=== PATIENT | male | born 1980 | race Caucasian/White ===

== ENCOUNTER 2023-12-07 19:48 | Emergency (ER) | payer MEDICAID, SELFPAY ==
[2023-12-07 19:50] VITALS: BP 167/94; PULSE 74; RESP 18; TEMP 36.9; O2SAT 100
--- NOTE | 2023-12-07 20:26 | RAD_ITS ---
EXAM: XR LEFT FOOT COMPLETE, 3 OR MORE VIEWS CLINICAL INDICATION: Injury/Pain TECHNIQUE: Frontal, lateral and oblique views of the left foot. COMPARISON: No relevant prior studies available. FINDINGS: BONES/JOINTS: There is an orthopedic screws seen within the tibia from previous fracture repair. Preservation of the joint space. No sclerotic or destructive changes observed. SOFT TISSUES: Unremarkable. No soft tissue swelling or gas. No radiopaque foreign body. RAD/Foot min 3 Views IMPRESSION: No acute findings in the left foot. Electronically Signed: Rao Pineda MD at 21:20 EDT ,
--- NOTE | 2023-12-07 20:32 | RAD_ITS ---
EXAM: XR LEFT ANKLE COMPLETE, 3 OR MORE VIEWS CLINICAL INDICATION: Injury/Pain TECHNIQUE: Frontal, lateral and oblique views of the left ankle. COMPARISON: No relevant prior studies available. FINDINGS: BONES/JOINTS: There is the distal aspect of orthopedic screws seen within the distal tibia. There are lucencies seen through the tibia and fibula from previous screw placement. There is minimal irregularity seen in the lateral aspect of the distal tibia likely trauma. No acute fracture. No subluxation. Normal alignment. Preservation of the joint space. SOFT TISSUES: Unremarkable. No soft tissue swelling or gas. No radiopaque foreign body. RAD/Ankle min 3 Views IMPRESSION: Evidence of prior fracture repair hardware placement. There is a screw still present with tibia. There are no acute osseous abnormalities. Electronically Signed: Rao Pineda MD at 21:19 EDT ,
--- NOTE | 2023-12-07 20:33 | EDS_ITS ---
HPI History of Present Illness HPI Narrative: Patient presents with left ankle injury that occurred today. Patient states he was up on a ladder approximately 2 steps and the ladder fell when his dog ran into it. Patient states he fell and inverted his left ankle. Patient states he felt and heard a pop. Patient describes the pain as sharp and stabbing. Patient states his pain is worse with weightbearing. Patient states nothing seems to help with the pain. Patient denies any paresthesias or weakness. P atient denies any other injuries. Chief Complaint: Lower Extremity Injury Onset/Context/Timing Onset: Today Context: Sudden Onset Timing: Continuous Quality of Pain: Sharp and Stabbing Location: Left ankle Worsened by: Weightbearing Relieved by: Nothing Associated Symptoms Associated Symptoms: Negative for Parasthesia, Weakness or Loss of Funtion PFSH PFSH Medical History no medical history no medical history Home Medications ?Medication ?Instructions ?Recorded ?Last Taken ?Type etodolac 300 mg capsule 300 mg PO TIDCM ##20 11/30/16 Unknown Rx Allergy/AdvReac Type Severity Reaction Status Date / Time No Known Allergies Allergy Verified 12/07/23 19:52 Surgical History (Updated 12/07/23 @ 21:[address] Deondre Caban DO) Status post ORIF of fracture of ankle Social History Smoking Status: Current some day smoker ROS ROS ED Constitutional Constitutional ED: Denies chills or fever(s) Eyes Eyes: Denies blurry vision or change in vision ENT ENT ED: Denies rhinorrhea or sore throat Cardiovascular Cardiovascular: Denies chest pain or palpitations Respiratory/Chest Respiratory/Chest: Denies cough or dyspnea Gastrointestinal Gastrointestinal: Reports nausea and vomiting Genitourinary Genitourinary ED: Denies dysuria or hematuria Musculoskeletal Musculoskeletal: Denies back pain or neck pain Integumentary Denies abscess or rash Neurologic Neurologic: Denies headache(s) or weakness Allergic/Immunologic Allergic/Immunologic ED: Denies mouth swelling or urticaria EXAM Physical Exam Const Vital Signs: 12/07/23 19:50 Temperature 98.4 F Temperature Source Temporal Pulse Rate 74 Respiratory Rate 18 Blood Pressure 167/94 H Blood Pressure Mean 118 Pulse Ox 100 Oxygen Delivery Method Room Air Positive well nourished and well developed General Appearance ED: well developed and NAD HEENT Reports moist mucous membranes normocephalic and atraumatic Extremity Extremity Narrative: There is tenderness, edema, and ecchymosis over the medial and lateral malleoli. There is also mild tenderness over the fifth metatarsal. There is no bony crepitance or step-off noted. There is no tenderness over the proximal fibula. Range of motion was limited in all motions of the left ankle secondary to pain. Strength is 5/5 bilaterally in the lower extremities. There are no sensory deficits noted. Pedal pulses are equal bilaterally. Neuro oriented x3, CN's II-XII intact bilaterally, moves all extremities and no sensory deficits noted Sensorium / Orientation: alert Motor Exam: strength 5/5 throughout MDM MDM MDM Narrative Medical decision making narrative: Differential diagnosis includes fracture, sprain, and contusion. X-rays of the left ankle will be obtained to assess for fracture and dislocation. X-rays of the left foot will be obtained to assess for fifth metatarsal fracture. Radiography Diagnostic Testing: X-rays of the left foot were obtained. There are 3 views. On my independent interpretation, there is no acute fracture. There is no soft tissue swelling noted. X-rays of the left ankle were obtained. There are 3 views. On my independent interpretation, there is no acute fracture noted. There is a screw noted in the distal tibia. There is mild soft tissue swelling. Radiologist also interpreted the x-rays and agrees. Treatment and Re-Evaluation Narrative: Smoking cessation was discussed. Patient was advised of his findings. Patient was instructed to ice and elevate the left ankle. Patient was given an Aircast. Patient was instructed to take Tylenol or ibuprofen as needed for pain. Maria D ent was instructed to follow-up with his primary care physician in 5 to 7 days. Patient understood and was agreeable with the plan. All questions were answered. Discharge Plan Triage Chief Complaint: Lower Extremity Injury ED Provider: Deondre Caban Dx/Rx/DC Orders Clinical Impression: Left ankle sprain, Fall Instructions: ED Ankle Sprain (Adult) Prescriptions: No Action etodolac 300 MG capsule 300 mg PO TIDCM Qty: 20 0RF Rx Instructions: with food Primary Care Provider: Annie Denton Referrals: Annie Denton, [employer]-C [Primary Care Provider] - 5-7 Days Print Language: Comoran Disposition Disposition: Home, Self Care
[2023-12-07 22:21] VITALS: BP 140/85; PULSE 82; RESP 16; TEMP 35.7; O2SAT 96
== END 2023-12-07 22:23 | disposition home or self-care (01) ==
PROVIDERS: Emergency Provider Emergency Medicine; PCP Nurse Practitioner Family; Visit Provider Emergency Medicine
DX: S93.402A Sprain of unspecified ligament of left ankle, initial encounter (principal); F17.200 Nicotine dependence, unspecified, uncomplicated; W11.XXXA Fall on and from ladder, initial encounter
CPT/HCPCS: 73610; 73630; 99283

== ENCOUNTER 2024-01-14 11:34 | Emergency (ER) | payer MEDICAID, SELFPAY ==
[2024-01-14 11:34] VITALS: BP 158/107; PULSE 93; RESP 16; TEMP 36.6; O2SAT 98; BMI 32.2
--- NOTE | 2024-01-14 12:19 | EDS_ITS ---
HPI History of Present Illness HPI Narrative: 43-year-old male no seen past medical history. Was working on a soap [employer] car at his home. He was fixing something on a spring let loose and lacerated the distal palmar aspect of his left ring finger. Unsure of his last tetanus shot. He is right-hand dominant. He has never had surgery on his left hand or any significant injury. This occurred about an hour ago. Chief Complaint: Laceration Informant: patient Occured/Mechanism Mechanism/Context: Yes injury Onset/Context/Timing Onset: Today and Hours Context: Sudden Onset Timing: Continuous Quality of Pain: Sharp Current Severity: Mild Maximum Severity: Mild Associated Symptoms Associated Symptoms: Negative for Parasthesia or Weakness Narrative Narrative: 43-year-old [id number] male with a laceration of his left ring finger at the distal end. Tetanus will need updated. This occurred within the last hour or so. Tetanus Immunization: Unknown Prior similar symptoms: No Recent Illness/Hospitalization: No PFSH PFSH Medical History no medical history no medical history Home Medications ?Medication ?Instructions ?Recorded ?Last Taken ?Type etodolac 300 mg capsule 300 mg PO TIDCM ##20 11/30/16 Unknown Rx Allergy/AdvReac Type Severity Reaction Status Date / Time No Known Allergies Allergy Verified 01/14/24 11:37 Surgical History Status post ORIF of fracture of ankle Social History Smoking Status: Current some day smoker tobacco type: cigarettes ROS ROS ED ROS Narrative Denies recent illness. Review of Systems ROS Unobtainable: Denies due to encephalopathy Constitutional Constitutional ED: Denies chills or fever(s) Eyes Eyes: Denies blurry vision ENT ENT ED: Denies ear pain Respiratory/Chest Respiratory/Chest: Denies cough Gastrointestinal Gastrointestinal: Denies abdominal pain Genitourinary Genitourinary ED: Denies dysuria Musculoskeletal Musculoskeletal: Denies back pain Integumentary Denies abscess Neurologic Neurologic: Denies headache(s) Psychiatric Psychiatric: Denies anxiety Endocrine Endocrinology: Denies cold intolerance Hematologic/Lymphatic Hematologic/Lymphatic: Denies easy bleeding, easy bruising or lymphadenopathy Allergic/Immunologic Allergic/Immunologic ED: Denies mouth swelling, tongue swelling or urticaria EXAM Physical Exam Narrative Exam Narrative: Well-appearing 42-year-old male. Vital signs stable afebrile. H EENT exam unremarkable. Neck nontender. No JVD. Lungs clear to auscultation bilaterally. Heart regular rhythm no murmur. Chest wall nontender. Abdomen soft nontender. Moving all 4 extremities. Neurovascular intact. The left hand, ring finger distal and palmar aspect he has about a 2 cm laceration that is actively bleeding that will need repaired. Otherwise the hand is neurovascularly intact. His hands are extremely dirty with grease and other things on them. Const Vital Signs: 01/14/24 11:34 Temperature 97.8 F Temperature Source Temporal Pulse Rate 93 Respiratory Rate 16 Blood Pressure 158/107 H Blood Pressure Mean 124 Pulse Ox 98 Oxygen Delivery Method Room Air Positive well nourished and well developed; Negative for cachectic, contractures or unkempt General Appearance ED: well developed and NAD; Negative for unkempt, cachectic, contractures, cyanotic or diaphoretic Nutritional Appearance: Negative for cachectic HEENT Reports moist mucous membranes normocephalic and atraumatic; Negative for trauma or tenderness Eyes PERRL and EOMs intact bilaterally General Eye ED: Negative for other Neck full ROM and supple General: Negative for tenderness Lymph Lymphatic: Negative for other Chest Wall inspection of chest normal and palpation of chest normal Chest: Negative for other Resp normal respiratory effort and clear to auscultation bilaterally Effort and Inspection: Negative for pain with movement Auscultation: Negative for rales, rhonchi, wheezes or diminished lung sounds Cardio regular rate, regular rhythm, S1 normal heart sound, S2 normal heart sound and no murmurs Rate: Negative for bradycardia or tachycardic Rhythm: Negative for abnormal rhythm GI non-tender, non-distended and no masses Inspection: Negative for abdominal distention Auscultation: normoactive bowel sounds Palpation: soft; Negative for tender, guarding or rebound tenderness present Back/Spine no CVA tenderness General Back: Negative for CVA tenderness Cervical Spine: Negative for cervical spine tenderness Thoracic Spine / Upper Back: Negative for thoracic spinal tenderness Extremity full ROM; Negative for normal to inspection Extremity Narrative: Laceration, distal left ring finger palmar aspect about 2 cm. General Extremety ED: Negative for edema General Extremity: Negative for edema Neuro oriented x3, CN's II-XII intact bilaterally and moves all extremities Sensorium / Orientation: alert, oriented to person, oriented to place and oriented to time; Negative for orientation impaired, lethargic, stuporous or other Motor Exam: strength 5/5 throughout Psych mental status grossly normal Appearance: Negative for unkempt Attitude: No agitated Mood & Affect: Negative for depressed, anxious or tearful Skin General Skin Exam: Negative for petechiae Lesions: no lesions Trauma: laceration; Negative for no lacerations or abrasions MDM MDM MDM Narrative Medical decision making narrative: 43-year-old male [id number] with laceration of the left distal ring finger palmar aspect. Tetanus will be updated. Digital block. Irrigated, explored and repaired. Procedures Lacerations Left ring finger laceration repair:: Length: 1 in Depth: Sub Q Shape: Linear Prep: Shure-Clens Laceration repair: Digital block, Lidocaine, Skin sutures and Wound explored Number of Sutures/Clementine: 4 Suture Information: Ethilon, Simple and 4-0 Comment: Left ring finger laceration distal end. Patient washed his hand thoroughly with soap and water. Digital block was performed. Once proper an esthetic was obtained. Area was cleaned thoroughly with Shur-Clens washed and irrigated with saline and explored. Closed using 4 simple did 4-0 Ethilon sutures. Proper hemostasis wound closure obtained. Patient tolerated procedure well. He was instructed on wound care and suture removal. Discharge Plan Triage Chief Complaint: Laceration ED Provider: Jimy Quiles Dx/Rx/DC Orders Clinical Impression: Finger laceration Instructions: ED Laceration, Hand: All Closures Prescriptions: No Action etodolac 300 MG capsule 300 mg PO TIDCM Qty: 20 0RF Rx Instructions: with food Primary Care Provider: Annie Denton Referrals: Annie Denton, HSE COORDINATOR-C [Primary Care Provider] - 10 Day for suture removal Activity Restrictions/Additional Instructions: Clean daily with soap and water or peroxide and water. Apply antibiotic ointment daily. Watch for any signs of infection such as pus, fever, red streaks, swelling. He is seen return. Ice and elevate. Motrin and Tylenol for pain and swelling. Stitches out in 10 days. Print Language: Cameroonian Disposition Disposition: Home, Self Care
[2024-01-14] MEDS: Diphth,Pertuss(Acell),Tet Vac 0.5 ML Vial IM (12:24)
[2024-01-14] MEDS: Lidocaine 1% (20 ml mdv) 20 ML Vial 10 ML INFILT (12:25)
[2024-01-14 14:14] VITALS: BP 145/62; PULSE 85; RESP 16; O2SAT 99
== END 2024-01-14 14:54 | disposition home or self-care (01) ==
PROVIDERS: Emergency Provider Emergency Medicine; PCP Nurse Practitioner Family; Visit Provider Emergency Medicine
DX: S61.215A Laceration without foreign body of left ring finger without damage to nail, initial encounter (principal); F17.210 Nicotine dependence, cigarettes, uncomplicated; W26.8XXA Contact with other sharp object(s), not elsewhere classified, initial encounter; Y93.89 Activity, other specified; Y92.009 Unspecified place in unspecified non-institutional (private) residence as the place of occurrence of the external cause; Z23 Encounter for immunization
CPT/HCPCS: 12001; 90471; 99284

== ENCOUNTER 2024-03-10 14:23 | Emergency (ER) | payer MEDICAID, SELFPAY ==
[2024-03-10 14:25] VITALS: BP 160/129; PULSE 75; RESP 18; TEMP 36.5; O2SAT 97; BMI 31.6
--- NOTE | 2024-03-10 14:30 | RAD_ITS ---
STUDY: X-RAY - RIGHT ANKLE REASON FOR EXAM: Male, 43 years old. Possible foreign body. TECHNIQUE: 3 view(s) of the ankle. COMPARISON: None. FINDINGS: Normal visualized distal tibia and fibula. Normal medial and lateral malleoli. Normal tibiotalar articulation and ankle mortise. Calcaneal spurs. The visualized subtalar, talonavicular, calcaneocuboid and tarsal articulations are normal. Talar neck beak. This is a normal variant. Soft tissue swelling overlying the lateral malleolus. No radiopaque foreign body is seen. RAD/Ankle min 3 Views IMPRESSION: Soft tissue swelling overlying the lateral malleolus. No radiopaque foreign body is seen. Calcaneal spurs. Electronically Signed: Johnathan Chandler MD at 14:52 EDT ,
--- NOTE | 2024-03-10 14:30 | RAD_ITS ---
STUDY: X-RAY - RIGHT FOOT CLINICAL: Male, 43 years old. Pain TECHNIQUE: 3 view(s) of the foot. COMPARISON: None. FINDINGS: Calcaneal spurs. Normal visualized subtalar, talonavicular, calcaneocuboid, tarsal and tarsometatarsal articulations. Normal metatarsi. Normal metatarsophalangeal joint of the great toe. Normal tibial and fibular sesamoid bones. Normal interphalangeal joint of the great toe. Normal phalanges of the great toe. Normal second through fifth metatarsophalangeal joints. Normal interphalangeal joints and phalanges of the lesser toes. There is a 1.4 mm density in the soft tissues between the midportion of the third and fourth metatarsals. This is seen along the plantar aspect of the foot. This may represent a radiopaque foreign body. RAD/Foot min 3 Views IMPRESSION: 1.4 mm radiopacity in the soft tissues between the midportion of the third and fourth metatarsals along the plantar aspect. Foreign body should be ruled out. Electronically Signed: Johnathan Chandler MD at 14:54 EDT ,
--- NOTE | 2024-03-10 19:22 | ED.RN ---
patient states he does not want to wait any longer and wants to go home and take tylenol. RN understood. patient walked out. registration aware
== END 2024-03-10 19:23 | disposition left against medical advice (07) ==
LOC: ED 19:23
PROVIDERS: PCP Nurse Practitioner Family
DX: T14.90XA Injury, unspecified, initial encounter (principal)
CPT/HCPCS: 73610; 73630; 99281

== ENCOUNTER 2025-05-10 16:07 | Emergency (ER) | payer MEDICAID, SELFPAY ==
[2025-05-10 16:07] VITALS: BP 163/80; PULSE 80; RESP 16; TEMP 36.9; O2SAT 99; BMI 31.3
--- NOTE | 2025-05-10 16:28 | EDS_ITS ---
HPI History of Present Illness Chief Complaint: Eye Problem Narrative Narrative: Patient is a 44-year-old male presenting to the emergency department for foreign body sensation in his right eye. States that about 3 weeks ago he fell like he got something in his eye which then resolved. States a few days ago he started having a foreign body sensation in his right eye with tearing. Reports watery drainage, no purulent drainage. Endorses some blurry vision in his right eye since the symptoms started. Denies headache. Is not a contact lens wearer. [facility] Medical History (Updated 05/10/25 @ 16:[address] Ciera Herbert MD) Gout Home Medications ?Medication ?Instructions ?Recorded ?Last Taken ?Type erythromycin 5 mg/gram (0.5 %) eye 1 applic RIGHT EYE Q6H 5 days #3.5 05/10/25 Unknown Rx ointment grams Allergy/AdvReac Type Severity Reaction Status Date / Time No Known Allergies Allergy Verified 05/10/25 16:07 Surgical History Status post ORIF of fracture of ankle Social History Smoking Status: Current some day smoker tobacco type: cigarettes ROS ROS ED ROS Narrative See HPI EXAM Physical Exam Narrative Exam Narrative: Vital signs: Reviewed General: Alert and oriented. No acute distress HEENT: Head is normocephalic and atraumatic, sinuses nontender. Nares are patent. Oropharynx and throat exams normal. Ocular: Small corneal abrasion at the 6 o'clock position. No foreign bodies noted on ocular exam. Lids everted with no foreign body seen. Mild conjunctival injection. Watery drainage, no purulence. Pupils 2 mm, equal, round and reactive. EOMI. Neck: Supple without lymphadenopathy nontender Cardiovascular: Regular rate and rhythm, no murmurs. No rubs or gallops. Normal S1 and S2 Respiratory: Clear to auscultation bilaterally. No wheezes, rales, rhonchi Abdominal: Soft and nontender. Normal bowel sounds. No guarding or rebound. Nonsurgical abdomen Extremities: No tenderness. No bruising. Normal range of motion. Normal sensation. Skin: No rash or redness. Neurological: Cranial nerves II through XII are grossly intact. Normal strength and sensation. Normal cerebellar function The rest of the physical exam is unremarkable Const Vital Signs: 05/10/25 16:07 Temperature 98.4 F Temperature Source Oral Pulse Rate 80 Respiratory Rate 16 Blood Pressure 163/80 H Blood Pressure Mean 107 Pulse Ox 99 Oxygen Delivery Method Room Air MDM MDM MDM Narrative Medical decision making narrative: Patient is a 44-year-old male presenting to emergency department for foreign body sensation in his right eye. Patient was seen and examined. Vitals are stable. Patient resting bed comfortably no acute distress. Visual acuity 20/30 left eye, 20/100 right eye, 20/30 bilateral eyes Differential includes but is not limited to: Foreign body, corneal abrasion, corneal ulcer, conjunctivitis, keratitis, iritis, less likely acute angle- closure glaucoma given timeframe and history/physical Eye exam was performed, tetracaine drops placed in eye. Patient had resolution of symptoms when tetracaine was applied consistent with anticipated diagnosis of a corneal abrasion. Fluorescein stain placed in the eye and Hammond lamp used with visualization of a small irregular circular corneal abrasion at the 6 o'clock position of the iris. On careful inspection of the eye and lid eversion there is no foreign body seen. Intraocular pressures within normal limits. Patient is a noncontact wearer, prescribed erythromycin ophthalmic ointment to be used 4 times daily for 5 days. He was given ophthalmology follow-up and instructed to follow-up as soon as possible. Patient discharged from the Emergency Department. I do not feel that the patient's evaluation reveals any acute reason for admission at this time. I instructed them to either follow-up with their primary care physician or promptly return to the Emergency Department for reevaluation should symptoms worsen or new symptoms develop. I explained what symptoms would indicate the need to return to the emergency department. Shared decision making was used. The patient voiced understanding of the treatment plan and is agreeable with it. Clinical impression Corneal abrasion History & Record Review Discussion w/independent historian: Patient Discharge Plan Triage Chief Complaint: Eye Problem ED Provider: Ciera Herbert Dx/Rx/DC Orders Clinical Impression: Corneal abrasion, right Instructions: ED Corneal Abrasion Prescriptions: New erythromycin 5 mg/gram (0.5 %) ointment 1 applic RIGHT EYE Q6H 5 Days Qty: 3.5 0RF Primary Care Provider: Annie eDnton Referrals: Willem Momin MD [Med Staff - Active Staff, Opthamology] - As soon as possible Annie Denton NP-C [Primary Care Provider, Medical] Activity Restrictions/Additional Instructions: Apply via ointment 4 times a day for 5 days in your right eye. Follow-up with the eye doctor below as soon as possible. Your evaluation in the Emergency Department did not reveal any acute reason for admission. However, I want to emphasize that you may be early in the course of a disease process or illness even if it is not present. For this reason you should follow-up within 24 hours for reevaluation with either your primary care physician or if necessary back here in the Emergency Department. You should return to the Emergency Department immediately if your symptoms worsen or new symptoms develop. Print Language: Kyrgyz Disposition Disposition: Home, Self Care Discharge Date/Time: 05/10/25 17:12
[2025-05-10] MEDS: Tetracaine 0.5% Ophthalmic Bottle 1 DRP RIGHT EYE (16:37)
--- OUTSIDE RECORDS SUMMARY | 2025-05-10 16:39 | XMS RPT_ITS | CCD ---
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 [id number] STUDY: X-RAY - RIGHT FOOT CLINICAL: Male, 43 years old. Pain TECHNIQUE: 3 view(s) of the foot. COMPARISON: None. FINDINGS: Calcaneal spurs. Normal visualized subtalar, talonavicular, calcaneocuboid, tarsal and tarsometatarsal articulations. Normal metatarsi. Normal metatarsophalangeal joint of the great toe. Normal tibial and fibular sesamoid bones. Normal interphalangeal joint of the great toe. Normal phalanges of the great toe. Normal second through fifth metatarsophalangeal joints. Normal interphalangeal joints and phalanges of the lesser toes. There is a 1.4 mm density in the soft tissues between the midportion of the third and fourth metatarsals. This is seen along the plantar aspect of the foot. This may represent a radiopaque foreign body. RAD/Foot min 3 Views IMPRESSION: 1.4 mm radiopacity in the soft tissues between the midportion of the third and fourth metatarsals along the plantar aspect. Foreign body should be ruled out. Electronically Signed: Johnathan Chandler MD at 14:54 EDT Reading Location ID and State: [address] [place] [address] , Service support , CC: MARGARITA Kovacs; ED PHYSICIAN PROVIDER Email Manager: Signed Normal [facility] No Panel Informationon 03-10 IMPRESSION: No acute bone or joint findings. Mild degenerative changes at first MTP joint. Small foreign object in the soft tissues inferior to the second metatarsal. Email Manager: LUCILLE Transcribe Date/Time: Mar 10 2024 1:13P Dictated by : CRISTOBAL SANCHEZ MD This examination was interpreted and the report reviewed and electronically signed by: CRISTOBAL SANCHEZ MD on Mar 10 2024 1:23PM [facility] DIVISION OF RADIOLOGY Radiology Study observation (narrative) [facility] No Panel InformationOrdered By: Ccf Provider on 03-10-[address] [facility] Urate SerPl-mCncon 4 Urate [Mass/Vol] 6.2 mg/dL Normal 4.0-8.1 [place] [facility] [facility] Comment on above: Order Comment: Speci men Type: BLOOD SPECIMENOrdering Facility: [facility] Address: [address] [place] [address] Performed By: #### 3 [id number] ####[facility] LABCLIA [id number] [facility] [id number] [id number] [place] XR ANKLE 3V AP/LAT/OBL RTon 03-10-2024 XR ANKLE 3V AP/LAT/OBL RT * * *Final Report* * * DATE OF EXAM: Mar 10 2024 1:11PM WOX 5297 - XR ANKLE 3V AP/LAT/OBL RT / PROCEDURE REASON: multiple diagnoses * * * * Physician Interpretation * * * * RIGHT ANKLE AND FOOT X-RAYS CLINICAL HISTORY: Pain and swelling of right ankle and foot x5 days without injury. Patient concern for gout. TECHNIQUE: AP, lateral and oblique views. COMPARISON: None available. RESULT: No fracture or malalignment. Joint spaces and articular surfaces are maintained. Mild degenerative changes at the margins of the first MTP joint. Small 3 mm oblong fourth object in the soft tissues inferior to the second metatarsal. IMPRESSION: No acute bone or joint findings. Mild degenerative changes at first MTP joint. Small foreign object in the soft tissues inferior to the second metatarsal. Email Manager: PSCB Transcribe Date/Time: Mar 10 2024 1:13P Dictated by : CRISTOBAL SANCHEZ MD This examination was interpreted and the report reviewed and electronically signed by: CRISTOBAL SANCHEZ MD on Mar 10 2024 1:23PM EST [id number] Normal [facility] XR Ankle - right AP and Late ral and obliqueon 03-10-2024 * * *Final Report* * * DATE OF EXAM: Mar 10 2024 1:11PM WOX 5297 - XR ANKLE 3V AP/LAT/OBL RT / PROCEDURE REASON: multiple diagnoses * * * * Physician Interpretation * * * * RIGHT ANKLE AND FOOT X-RAYS CLINICAL HISTORY: Pain and swelling of right ankle and foot x5 days without injury. Patient concern for gout. TECHNIQUE: AP, lateral and oblique views. COMPARISON: None available. RESULT: No fracture or malalignment. Joint spaces and articular surfaces are maintained. Mild degenerative changes at the margins of the first MTP joint. Small 3 mm oblong fourth object in the soft tissues inferior to the second metatarsal. DIVISION OF RADIOLOGY Provider, [facility] - 03/10/2024 * * *Final Report* * * DATE OF EXAM: Mar 10 2024 1:11PM WOX 5297 - XR ANKLE 3V AP/LAT/OBL RT / PROCEDURE REASON: multiple diagnoses * * * * Physician Interpretation * * * * RIGHT ANKLE AND FOOT X-RAYS CLINICAL HISTORY: Pain and swelling of right ankle and foot x5 days without injury. Patient concern for gout. TECHNIQUE: AP, lateral and oblique views. COMPARISON: None available. RESULT: No fracture or malalignment. Joint spaces and articular surfaces are maintained. Mild degenerative changes at the margins of the first MTP joint. Small 3 mm oblong fourth object in the soft tissues inferior to the second metatarsal. IMPRESSION IMPRESSION: No acute bone or joint findings. Mild degenerative changes at first MTP joint. Small foreign object in the soft tissues inferior to the second metatarsal. Email Manager: [employer] Transcribe Date/Time: Mar 10 2024 1:13P Dictated by : CRISTOBAL SANCHEZ MD This examination was interpreted and the report reviewed and electronically signed by: CRISTOBAL SANCHEZ MD on Mar 10 2024 1:23PM [facility] XR FOOT 3V AP/LAT/OBL RTon 0 03-10-2024 XR FOOT 3V AP/LAT/OBL RT * * *Final Report* * * DATE OF EXAM: Mar 10 2024 1:11PM WOX 5337 - XR FOOT 3V AP/LAT/OBL RT / PROCEDURE REASON: multiple diagnoses * * * * Physician Interpretation * * * * RIGHT ANKLE AND FOOT X-RAYS CLINICAL HISTORY: Pain and swelling of right ankle and foot x5 days without injury. Patient concern for gout. TECHNIQUE: AP, lateral and oblique views. COMPARISON: None available. RESULT: No fracture or malalignment. Joint spaces and articular surfaces are maintained. Mild degenerative changes at the margins of the first MTP joint. Small 3 mm oblong fourth object in the soft tissues inferior to the second metatarsal. IMPRESSION: No acute bone or joint findings. Mild degenerative changes at first MTP joint. Small foreign object in the soft tissues inferior to the second metatarsal. Email Manager: LUCILLE Transcribe Date/Time: Mar 10 2024 1:13P Dictated by : CRISTOBAL SANCHEZ MD This examination was interpreted and the report reviewed and electronically signed by: CRISTOBAL SANCHEZ MD on Mar 10 2024 1:23PM EST [id number] Normal [facility] XR Foot - right AP and Later al and obliqueon 03-10-2024 * * *Final Report* * * DATE OF EXAM: Mar 10 2024 1:11PM WOX 5337 - XR FOOT 3V AP/LAT/OBL RT / PROCEDURE REASON: multiple diagnoses * * * * Physician Interpretation * * * * RIGHT ANKLE AND FOOT X-RAYS CLINICAL HISTORY: Pain and swelling of right ankle and foot x5 days without injury. Patient concern for gout. TECHNIQUE: AP, lateral and oblique views. COMPARISON: None available. RESULT: No fracture or malalignment. Joint spaces and articular surfaces are maintained. Mild degenerative changes at the margins of the first MTP joint. Small 3 mm oblong fourth object in the soft tissues inferior to the second metatarsal. DIVISION OF RADIOLOGY Provider, [facility] - 03/10/2024 * * *Final Report* * * DATE OF EXAM: Mar 10 2024 1:11PM WOX 5337 - XR FOOT 3V AP/LAT/OBL RT / PROCEDURE REASON: multiple diagnoses * * * * Physician Interpretation * * * * RIGHT ANKLE AND FOOT X-RAYS CLINICAL HISTORY: Pain and swelling of right ankle and foot x5 days without injury. Patient concern for gout. TECHNIQUE: AP, lateral and oblique views. COMPARISON: None available. RESULT: No fracture or malalignment. Joint spaces and articular surfaces are maintained. Mild degenerative changes at the margins of the first MTP joint. Small 3 mm oblong fourth object in the soft tissues inferior to the second metatarsal. IMPRESSION IMPRESSION: No acute bone or joint findings. Mild degenerative changes at first MTP joint. Small foreign object in the soft tissues inferior to the second metatarsal. Email Manager: LUCILLE Transcribe Date/Time: Mar 10 2024 1:13P Dictated by : CRISTOBAL SANCHEZ MD This examination was interpreted and the report reviewed and electronically signed by: CRISTOBAL SANCHEZ MD on Mar 10 2024 1:23PM [facility] Emergency Department Summary on 01-14-2024 Emergency Department Summary [facility] Medical Records Department [address] [place] [address] Emergency Department Summary 01/14/24 MR#: [id number] Acct: [id number] Name: YANN COLLIER Rep #: [id number] : 1980 43 From: Jimy Quiles MD PCP: MARGARITA Michel Status:REG ER Location: ED HPI History of Present Illness HPI Narrative: 43-year-old male no seen past medical history. Was working on a [employer] car at his home. He was fixing something on a spring let loose and lacerated the distal palmar aspect of his left ring finger. Unsure of his last tetanus shot. He is right-hand dominant. He has never had surgery on his left hand or any significant injury. This occurred about an hour ago. Chief Complaint: Laceration Informant: patient Occured/Mechanism Mechanism/Context: Yes injury Onset/Context/Timing Onset: Today and Hours Context: Sudden Onset Timing: Continuous Quality of Pain: Sharp Current Severity: Mild Maximum Severity: Mild Associated Symptoms Associated Symptoms: Negative for Parasthesia or Weakness Narrative Narrative: 43-year-old [id number]-[id number]-gsjsljnx male with a laceration of his left ring finger at the distal end. Tetanus will need updated. This occurred within the last hour or so. Tetanus Immunization: Unknown Prior similar symptoms: No Recent Illness/Hospitalizatio n: No PFSH PFSH Medical History no medical history no medical history Home Medications ???Medication ???Instructions ???Recorded ???Last Taken ???Type etodolac 300 mg capsule 300 mg PO TIDCM ##20 11/30/16 Unknown Rx Allergy/AdvReac Type Severity Reaction Status Date / Time No Known Allergies Allergy Verified 01/14/24 11:37 Surgical History Status post ORIF of fracture of ankle Social History Smoking Status: Current some day smoker tobacco type: cigarettes ROS ROS ED ROS Narrative Denies recent illness. Review of Systems ROS Unobtainable: Denies due to encephalopathy Constitutional Constitutional ED: Denies chills or fever(s) Eyes Eyes: Denies blurry vision ENT ENT ED: Denies ear pain Respiratory/Chest Respiratory/Chest: Denies cough Gastrointestinal Gastrointestinal: Denies abdominal pain Genitourinary Genitourinary ED: Denies dysuria Musculoskeletal Musculoskeletal: Denies back pain Integumentary Denies abscess Neurologic Neurologic: Denies headache(s) Psychiatric Psychiatric: Denies anxiety Endocrine Endocrinology: Denies cold intolerance Hematologic/Lymphatic Hematologic/Lymphatic: Denies easy bleeding, easy bruising or lymphadenopathy Allergic/Immunologic Allergic/Immunologic ED: Denies mouth swelling, tongue swelling or urticaria EXAM Physical Exam Narrative Exam Narrative: Well-appearing 42-year-old male. Vital signs stable afebrile. H EENT exam unremarkable. Neck nontender. No JVD. Lungs clear to auscultation bilaterally. Heart regular rhythm no murmur. Chest wall nontender. Abdomen soft nontender. Moving all 4 extremities. Neurovascular intact. The left hand, ring finger distal and palmar aspect he has about a 2 cm laceration that is actively bleeding that will need repaired. Otherwise the hand is neurovascularly intact. His hands are extremely dirty with grease and other things on them. Const Vital Signs: 01/14/24 11:34 Temperature 97.8 F Temperature Source Temporal Pulse Rate 93 Respiratory Rate 16 Blood Pressure 158/107 H Blood Pressure Mean 124 Pulse Ox 98 Oxygen Delivery Method Room Air Positive well nourished and well developed; Negative for cachectic, contractures or unkempt General Appearance ED: well developed and NAD; Negative for unkempt, cachectic, contractures, cyanotic or diaphoretic Nutritional Appearance: Negative for cachectic HEENT Reports moist mucous membranes normocephalic and atraumatic; Negative for trauma or tenderness Eyes PERRL and EOMs intact bilaterally General Eye ED: Negative for other Neck full ROM and supple General: Negative for tenderness Lymph Lymphatic: Negative for other Chest Wall inspection of chest normal and palpation of chest normal Chest: Negative for other Resp normal respiratory effort and clear to auscultation bilaterally Effort and Inspection: Negative for pain with movement Auscultation: Negative for rales, rhonchi, wheezes or diminished lung sounds Cardio regular rate, regular rhythm, S1 normal heart sound, S2 normal heart sound and no murmurs Rate: Negative for bradycardia or tachycardic Rhythm: Negative for abnormal rhythm GI non-tender, non-distended and no masses Inspection: Negative for abdominal distention Auscultation: normoactive bowel sounds Palpation: soft; Negative for tender, guardi (more content not included)... Normal [facility] Ankle min 3 Viewson 12-07-19 Ankle min 3 Views [facility] Imaging Services [address] [place], [place] [address] Ankle min 3 Views MR#: [id number] Acct: [id number] Name: YANN COLLIER Rep #: [id number] : 1980 M 43 From: Rao Pineda MD PCP: Annie Kovacs NP-C Status: REG ER Study: Ankle min 3 Views Date of Exam: 12/07/23 Exam# [id number] Ordering Dr: Deondre Caban DO [id number] EXAM: XR LEFT ANKLE COMPLETE, 3 OR MORE VIEWS CLINICAL INDICATION: Injury/Pain TECHNIQUE: Frontal, lateral and oblique views of the left ankle. COMPARISON: No relevant prior studies available. FINDINGS: BONES/JOINTS: There is the distal aspect of orthopedic screws seen within the distal tibia. There are lucencies seen through the tibia and fibula from previous screw placement. There is minimal irregularity seen in the lateral aspect of the distal tibia likely trauma. No acute fracture. No subluxation. Normal alignment. Preservation of the joint space. SOFT TISSUES: Unremarkable. No soft tissue swelling or gas. No radiopaque foreign body. RAD/Ankle min 3 Views IMPRESSION: Evidence of prior fracture repair hardware placement. There is a screw still present with tibia. There are no acute osseous abnormalities. Electronically Signed: Rao Pineda MD at 21:19 EDT , CC: CONGRESSIONAL AIDEAadl Kovacs; Dr. Deondre Caban DO Email Manager: Signed Normal [facility] Emergency Department Summary on 12-07-2023 Emergency Department Summary [facility] Medical Records Department [address] [place] [address] Emergency Department Summary 12/07/23 MR#: [id number] Acct: [id number] Name: YANN COLLIER Rep #: [id number] : 1980 43 From: Deondre Caban DO PCP: MARGARITA Michel Status:DEP ER Location: ED HPI History of Present Illness HPI Narrative: Patient presents with left ankle injury that occurred today. Patient states he was up on a ladder approximately 2 steps and the ladder fell when his dog ran into it. Patient states he fell and inverted his left ankle. Patient states he felt and heard a pop. Patient describes the pain as sharp and stabbing. Patient states his pain is worse with weightbearing. Patient states nothing seems to help with the pain. Patient denies any paresthesias or weakness. Patient denies any other injuries. Chief Complaint: Lower Extremity Injury Onset/Context/Timing Onset: Today Context: Sudden Onset Timing: Continuous Quality of Pain: Sharp and Stabbing Location: Left ankle Worsened by: Weightbearing Relieved by: Nothing Associated Symptoms Associated Symptoms: Negative for Parasthesia, Weakness or Loss of Funtion PFSH PFSH Medical History no medical history no medical history Home Medications ???Medication ???Instructions ???Recorded ???Last Taken ???Type etodolac 300 mg capsule 300 mg PO TIDCM ##20 11/30/16 Unknown Rx Allergy/AdvReac Type Severity Reaction Status Date / Time No Known Allergies Allergy Verified 12/07/23 19:52 Surgical History (Updated 12/07/23 @ 21:[address] Deondre Caban DO) Status post ORIF of fracture of ankle Social History Smoking Status: Current some day smoker ROS ROS ED Constitutional Constitutional ED: Denies chills or fever(s) Eyes Eyes: Denies blurry vision or change in vision ENT ENT ED: Denies rhinorrhea or sore throat Cardiovascular Cardiovascular: Denies chest pain or palpitations Respiratory/Chest Respiratory/Chest: Denies cough or dyspnea Gastrointestinal Gastrointestinal: Reports nausea and vomiting Genitourinary Genitourinary ED: Denies dysuria or hematuria Musculoskeletal Musculoskeletal: Denies back pain or neck pain Integumentary Denies abscess or rash Neurologic Neurologic: Denies headache(s) or weakness Allergic/Immunologic Allergic/Immunologic ED: Denies mouth swelling or urticaria EXAM Physical Exam Const Vital Signs: 12/07/23 19:50 Temperature 98.4 F Temperature Source Temporal Pulse Rate 74 Respiratory Rate 18 Blood Pressure 167/94 H Blood Pressure Mean 118 Pulse Ox 100 Oxygen Delivery Method Room Air Positive well nourished and well developed General Appearance ED: well developed and NAD HEENT Reports moist mucous membranes normocephalic and atraumatic Extremity Extremity Narrative: There is tenderness, edema, and ecchymosis over the medial and lateral malleoli. There is also mild tenderness over the fifth metatarsal. There is no bony crepitance or step-off noted. There is no tenderness over the proximal fibula. Range of motion was limited in all motions of the left ankle secondary to pain. Strength is 5/5 bilaterally in the lower extremities. There are no sensory deficits noted. Pedal pulses are equal bilaterally. Neuro oriented x3, CN's II-XII intact bilaterally, moves all extremities and no sensory deficits noted Sensorium / Orientation: alert Motor Exam: strength 5/5 throughout MDM MDM MDM Narrative Medical decision making narrative: Differential diagnosis includes fracture, sprain, and contusion. X-rays of the left ankle will be obtained to assess for fracture and dislocation. X-rays of the left foot will be obtained to assess for fifth metatarsal fracture. Radiography Diagnostic Testing: X-rays of the left foot were obtained. There are 3 views. On my independent interpretation, there is no acute fracture. There is no soft tissue swelling noted. X-rays of the left ankle were obtained. There are 3 views. On my independent interpretation, there is no acute fracture noted. There is a screw noted in the distal tibia. There is mild soft tissue swelling. Radiologist also interpreted the x-rays and agrees. Treatment and Re-Evaluation Narrative: Smoking cessation was discussed. Patient was advised of his findings. Patient was instructed to ice and elevate the left ankle. Patient was given an Aircast. Patient was instructed to take Tylenol or ibuprofen as needed for pain. Patient was instructed to follow-up with his primary care physician in 5 to 7 days. Patient understood and was agreeable with the plan. All questions were answered. Discharge Plan Triage Chief Complaint: Lower Extremity Injury ED Provider: Deondre Caban Dx/Rx/DC Orders (more content not included)... Normal [facility] Foot min 3 Viewson 4 Foot min 3 Views [facility] Imaging Services [address] [place], [place] [address] Foot min 3 Views MR#: [id number] Acct: [id number] Name: YANN COLLIER Rep #: [id number] : 1980 M 43 From: Rao Pineda MD PCP: MARGARITA Michel Status: REG ER Study: Foot min 3 Views Date of Exam: 12/07/23 Exam# [id number] Ordering Dr: Deondre Caban DO [id number] EXAM: XR LEFT FOOT COMPLETE, 3 OR MORE VIEWS CLINICAL INDICATION: Injury/Pain TECHNIQUE: Frontal, lateral and oblique views of the left foot. COMPARISON: No relevant prior studies available. FINDINGS: BONES/JOINTS: There is an orthopedic screws seen within the tibia from previous fracture repair. Preservation of the joint space. No sclerotic or destructive changes observed. SOFT TISSUES: Unremarkable. No soft tissue swelling or gas. No radiopaque foreign body. RAD/Foot min 3 Views IMPRESSION: No acute findings in the left foot. Electronically Signed: Rao Pineda MD at 21:20 EDT , CC: MARGARITA Kovacs; Dr. Deondre Caban DO Email Manager: Signed [facility] 11-26-2023 [facility] Telephone (FAMPWS) YANN COLLIER ([id number]) 1980 M Date Time Provider Department 11/26/23 ANNIE KOVACS During your visit today, we recorded the following information about you: Annie Kovacs APRN.RETAIL OFFICE ASSOCIATE 11/26/2023 7:58 AM Signed Please let patient know his hgb is normal however is WBC is elevated. Is patient currently sick? Tori Wilhelm, CHELSEA 11/26/2023 10:20 AM Signed Patient calls and notified of results and providers instructions. Patient verbalizes understanding. Patient reports that he was feeling ill at time of lab draw. He said generalized all over achiness was symptom but improved now and feels fine. 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] 10/24/2011 Backache, unspecified [M54.9] 01/29/2013 Encounter Status:Closed by ANNIE KOVACS on 11/26/23 Normal [facility] CBC W Auto Differential pane l (Bld)on 11-24-2023 Basophils (Bld) [#/Vol] 0.00 10*3/uL Normal <0.11 [facility] Comment on above: Order Comment: Speci men Type: BLOOD SPECIMENOrdering Facility: [facility] Address: [address] [place] [address] Performed By: #### 5 7021-8 ####[facility] LABCLIA [id number] [place] [address] [place] Basophils/100 WBC (Bld) 0.0 % Normal [facility] Comment on above: Order Comment: Speci men Type: BLOOD SPECIMENOrdering Facility: [facility] Address: [address] [place] [address] Performed By: #### 5 7021-8 ####[facility] LABCLIA [id number] [place] [address] [place] Differential cell count method Nom (Bld) Manual Normal [facility] Comment on above: Order Comment: Speci men Type: BLOOD SPECIMENOrdering Facility: [facility] Address: [address] [place] [address] Performed By: #### 5 7021-8 ####[facility] LABCLIA [id number] [place] [address] [place] Eosinophils (Bld) [#/Vol] 0.35 10*3/uL Normal <0.46 [facility] Comment on above: Order Comment: Speci men Type: BLOOD SPECIMENOrdering Facility: [facility] Address: [address] [place] [address] Performed By: #### 5 7021-8 ####[facility] LABCLIA [id number] [place] [address] [place] Eosinophils/100 WBC (Bld) 2.6 % Normal [facility] Comment on above: Order Comment: Speci men Type: BLOOD SPECIMENOrdering Facility: [facility] Address: [address] [place] [address] Performed By: #### 5 7021-8 ####[facility] LABCLIA [id number] [place] [address] [place] Erythrocyte distribution width (RBC) [Ratio] 12.9 % Normal 11.5-15.0 [facility] Comment on above: Order Comment: Speci men Type: BLOOD SPECIMENOrdering Facility: [facility] Address: [address] [place] [address] Performed By: #### 5 7021-8 ####[facility] LABCLIA [id number] [place] [address] [place] Hematocrit (Bld) [Volume fraction] 49.5 % Normal 39.0-51.0 [facility] Comment on above: Order Comment: Speci men Type: BLOOD SPECIMENOrdering Facility: [facility] Address: [address] [place] [address] Performed By: #### 5 7021-8 ####[facility] LABCLIA [id number] [place] [address] [place] Hemoglobin (Bld) [Mass/Vol] 16.6 g/dL Normal 13.0-17.0 [facility] Comment on above: Order Comment: Speci men Type: BLOOD SPECIMENOrdering Facility: [facility] Address: [address] [place] [address] Performed By: #### 5 7021-8 ####[facility] LABCLIA [id number] [place] [address] [place] Lymphocytes (Bld) [#/Vol] 4.76 10*3/uL High 1.00-4.00 [facility] Comment on above: Order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
[2025-05-10 17:11] VITALS: BP 163/80; PULSE 80; RESP 16; TEMP 36.9; O2SAT 99
== END 2025-05-10 17:12 | disposition home or self-care (01) ==
PROVIDERS: Emergency Provider Student in an Organized Health Care Education/Training Program; PCP Nurse Practitioner Family; Visit Provider Student in an Organized Health Care Education/Training Program
DX: S05.01XA Injury of conjunctiva and corneal abrasion without foreign body, right eye, initial encounter (principal); F17.210 Nicotine dependence, cigarettes, uncomplicated
CPT/HCPCS: 99283